=== PATIENT | male | born 1985 | race Caucasian/White ===

== ENCOUNTER 2022-07-24 12:05 | Emergency (ER) | payer OTHER ==
[2022-07-24] MEDS ORDERED: LORazepam 0.5 MG Tab PO ONE (14:54)
== END 2022-07-24 16:50 | disposition home or self-care (01) ==
LOC: MERGE 12:05 → JD.ED 12:05
DX: F41.1 Generalized anxiety disorder (principal); I10 Essential (primary) hypertension; Z79.899 Other long term (current) drug therapy; Z72.0 Tobacco use
CPT/HCPCS: 36415; 71045; 80053; 83735; 84484; 85025; 85379; 85610; 85730; 93005; 99284; A9270; 93010